=== PATIENT | male | born 1945 | race Caucasian/White ===

== ENCOUNTER 2019-04-23 11:26 | Emergency (ER) | payer MEDICARE ==
[~2019-04-23] VITALS: Ht 180.3 cm; Wt 113.4 kg
[~2019-04-23 11:26] MED LIST: 8 HOUR PAIN RE650 MG PO; ACET325 PO; AMLO5 PO; ASCO500 PO; ASPI325; BIOTIN5000 MCG PO; CHOL10002; Ceftriaxon1 GM/50 M1 IV; DILT300 PO; Daily Multiple1 EACH PO; Depo-Testos200 MG/ML IM; Desyrel50 MG; ELIQUIS5 MG PO; Glucosamine H1500 MG PO; HYDCHL25 PO; Hydrocodone-Ap1 EA20 PO; LOSA50 PO; MELA3; NAPR220; OMEG1CAP30; UBID100 PO; VITAMIN D2000 UNIT PO
[2019-04-23 12:15] LABS: BASOPHILS ABSOLUTE AUTO 0.06 K/mm3 (0.00-0.23); BASOPHILS PERCENT AUTO 1 % (0-2); EOSINOPHILS ABSOLUTE AUTO 0.14 K/mm3 (0.00-0.68); EOSINOPHILS PERCENT AUTO 1 % (0-6); Hematocrit 46.2 % (37.0-53.0); Hemoglobin 14.7 g/dL (13.5-17.5); IMMATURE GRAN PERCENT AUTO 1 % (0-1); LYMPHOCYTES ABSOLUTE AUTO 1.56 K/mm3 (0.84-5.20); LYMPHOCYTES PERCENT AUTO 13 % (21-46); MONOCYTES ABSOLUTE AUTO 0.99 K/mm3 (0.16-1.47); MONOCYTES PERCENT AUTO 8 % (4-13); Mean Corpuscular HGB 30.2 pg (26.0-34.0); Mean Corpuscular HGB Conc 31.8 g/dL (31.5-36.5); Mean Corpuscular Volume 95 fL (80-100); Mean Platelet Volume 9.9 fL (9.1-12.4); NEUTROPHILS ABSOLUTE AUTO 9.06 K/mm3 (1.96-9.15); NEUTROPHILS PERCENT AUTO 76 % (41-73); Platelet Count 159 K/mm3 (150-400); RDW Coefficient Variation 14.7 % (11.7-14.2); Red Blood Cell Count 4.86 M/mm3 (4.30-5.90); White Blood Cell Count 11.91 K/mm3 (4.00-11.30)
[2019-04-23 12:25] LABS: Anion Gap 6 mmol/L (6-16); Blood Urea Nitrogen 22 mg/dL (8-24); Bun/Creatinine Ratio 18.8 (12.0-20.0); CO2, Blood 28 mmol/L (21-32); Calcium, Blood 9.2 mg/dL (8.5-10.1); Chloride, Blood 107 mmol/L (98-108); Creatinine, Blood 1.17 mg/dL (0.60-1.20); Glomerular Filtration Rate >60 (60-); Glucose, Blood 139 mg/dL (70-99); Potassium, Blood 3.7 mmol/L (3.5-5.5); Sodium, Blood 141 mmol/L (136-145)
[2019-04-23] MEDS ORDERED: Amiodarone HCl200 MG PO (12:38)
[2019-04-23] MEDS ORDERED: METO50ER PO (12:39)
[2019-04-23] MEDS ORDERED: ELIQUIS5 MG PO (12:46)
[2019-04-23] MEDS ORDERED: LOSA50 PO (12:46)
[2019-04-23] MEDS ORDERED: Metformin HCl850 MG PO (12:47)
[2019-04-23] MEDS ORDERED: TESTONE CI200 MG/1 M IM (12:47)
[2019-04-23] MEDS ORDERED: Norco 10-325 T1 EACH PO (12:48)
[2019-04-23] MEDS ORDERED: Multivitamin1 EAC1 PO (12:48)
[2019-04-23] MEDS ORDERED: OMEGA 3 500 SO1 EACH PO (12:48)
[2019-04-23] MEDS ORDERED: Percocet 10-321 EACH PO (14:15)
[2019-04-23] MEDS ORDERED: K-Dur 20 meq T20 MEQ PO (14:15)
[2019-04-23] MEDS ORDERED: Lasix20 MG PO (14:15)
== END 2019-04-23 15:08 | disposition home or self-care (01) ==
LOC: ER 11:26
PROVIDERS: Internal Medicine
DX: G89.18 Other acute postprocedural pain (principal); R07.81 Pleurodynia; E87.70 Fluid overload, unspecified; I48.91 Unspecified atrial fibrillation; I10 Essential (primary) hypertension; G47.33 Obstructive sleep apnea (adult) (pediatric); Z88.0 Allergy status to penicillin; Z79.899 Other long term (current) drug therapy; Z87.891 Personal history of nicotine dependence
CPT/HCPCS: 36415; 71046; 71260; 80048; 85025; 93005; 93010; 96374-59; 99285-25; J2405; J3010; Q9967

== ENCOUNTER → 2019-05-02 | Outpatient (CLI) | payer MEDICARE ==
[~2019-05-02] MED LIST changes: +Amiodarone HCl200 MG PO; +K-Dur 20 meq T20 MEQ PO; +Lasix20 MG PO; +METO50ER PO; +Metformin HCl850 MG PO; +Multivitamin1 EAC1 PO; +Norco 10-325 T1 EACH PO; +OMEGA 3 500 SO1 EACH PO; +Percocet 10-321 EACH PO; +TESTONE CI200 MG/1 M IM
== END | disposition home or self-care (01) ==
LOC: PLD 10:07 → LAB SHORT 10:07
DX: D48.5 Neoplasm of uncertain behavior of skin (principal)
CPT/HCPCS: 88305

== ENCOUNTER → 2020-04-29 | Outpatient (CLI) | payer MEDICARE ==
[~2020-04-29] MED LIST changes: +FURO40 PO; +Glucophage Xr750 MG PO; +POTA20PAC PO
== END | disposition home or self-care (01) ==
LOC: LAB SHORT 08:31 → PLD 08:31
DX: C44.42 Squamous cell carcinoma of skin of scalp and neck (principal)
CPT/HCPCS: 88305

== ENCOUNTER → 2020-11-18 | Outpatient (CLI) | payer OTHER | END | disposition home or self-care (01) | LOC: LAB SHORT 12:18 → PLD 12:18 | DX: L98.499 Non-pressure chronic ulcer of skin of other sites with unspecified severity (principal) | CPT/HCPCS: 88305; 88312 ==

== ENCOUNTER → 2021-08-03 | Outpatient (CLI) | payer OTHER ==
[2021-08-03 17:29] LABS: Source, Urine Clean Catch
[2021-08-03 18:16] LABS: Appearance, Urine Cloudy (Clear); Bilirubin, Urine Neg (Neg); Blood, Urine 2+ (Neg); Color, Urine Yellow (P-Yellow); Glucose Qualitative, Urine Neg (Neg); Ketones, Urine Neg (Neg); Leukocyte Esterase, Urine 3+ (Neg); Nitrite, Urine Pos (Neg); Protein, Urine 2+ (Neg); Specific Gravity, Urine 1.015 (1.003-1.022); Urobilinogen, Urine NORM (Normal)
[2021-08-03 18:40] LABS: White Blood Cells, Urine TNTC /hpf (0-5)
[2021-08-03 18:42] LABS: Bacteria Many /hpf; Red Blood Cells, Urine 0-2 /hpf (0-2); Squamous Epithelial Cells Rare /hpf (Few)
== END | disposition home or self-care (01) ==
LOC: LAB 17:10 → LAB SHORT 17:10 → LAB FUT 08-03 14:20
PROVIDERS: Internal Medicine
DX: N39.0 Urinary tract infection, site not specified (principal)
CPT/HCPCS: 81001; 87077; 87086; 87186